=== PATIENT | female | born 1985 ===

== ENCOUNTER 2022-03-12 09:45 | Outpatient (REF) | payer OTHER, SELFPAY ==
[2022-03-13 13:04] LABS: BV Int Neg Control Negative (Negative); BV Int Pos Control Positive (Positive)
[2022-03-17 07:39] LABS: HPV mRNA E6/E7 rflx Not Detected (Not Detected)
== END 2022-03-12 09:46 | disposition home or self-care (01) ==
LOC: HO.LNP 09:45
PROVIDERS: Visit Provider Advanced Practice Midwife
DX: Z01.419 Encounter for gynecological examination (general) (routine) without abnormal findings (principal); Z11.3 Encounter for screening for infections with a predominantly sexual mode of transmission
CPT/HCPCS: 87480; 87510; 87624; 87660; 88142

== ENCOUNTER 2022-03-12 09:54 | Outpatient (REF) | payer OTHER, SELFPAY ==
[2022-03-12 11:37] LABS: HIV AB/AG Nonreactive (Nonreactive); HIV Num 1 0.07 S/CO (0.00-0.99); Hepatitis B Surface Antigen Negative (Negative); ~HepC Num1 0.09 S/CO (0.00-0.79); ~Hepatitis C Antibody Nonreactive (Nonreactive)
[2022-03-12 13:09] LABS: Syphilis Screen Nonreactive (Nonreactive)
[2022-03-12 14:19] LABS: CT PCR NOT DETECTED (Not Detect.); NG PCR NOT DETECTED (Not Detect.)
== END 2022-03-12 09:55 | disposition home or self-care (01) ==
LOC: HO.LAB 09:54
PROVIDERS: PCP Hospitalist; Visit Provider Advanced Practice Midwife
DX: Z11.3 Encounter for screening for infections with a predominantly sexual mode of transmission (principal)
CPT/HCPCS: 86780; 86803; 87340; 87389; 87491; 87591

== ENCOUNTER 2022-12-31 11:13 | Outpatient (AMB) | payer OTHER, SELFPAY ==
[2022-12-31 11:32] VITALS: BP 98/60; PULSE 77; RESP 12; O2SAT 99; BMI 32.6
--- NOTE | 2022-12-31 11:32 | MHC.PC.OV ---
Vital Signs 12/31/22 11:32 Height 5 ft 3 in Weight 184 lb BMI 32.6 BP 98/60 Blood Pressure Location Lt brachial Position Sitting Respiration 12 Pulse 77 Pulse Source Pulse Oximeter Pulse Oximetry (%) 99 Oxygen Delivery Method Room Air Intake Visit Reasons: pt requesting a physical Intake Note: Patient states that she would like a full panel of blood work done due to her daughter having diabetes type 1 and not being here in a couple years. 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 Required: No Accompanied by: Self / Same As Patient Allergies acetaminophen [From PERCOCET] Allergy (Unknown, Verified 12/31/22 11:48) itching oxycodone [From PERCOCET] Allergy (Unknown, Verified 12/31/22 11:48) itching penicillin V Allergy (Unknown, Verified 12/31/22 11:48) rash tramadol [TRAMADOL] Allergy (Unknown, Verified 12/31/22 11:48) PALPITATIONS, dizziness, dizziness pencilliin Allergy (Unknown, Uncoded 03/12/22 09:07) rash Medication List - Last Reconciled 12/31/22 by JAYDEN Andrea No Known Home Meds Tobacco use date assessed: 12/31/22 Dental Screening Dental Screen Date: 12/31/22 Did you have a dental visit in the last 12 months?: Yes Did you have a dental problem in the last 6 months where you did not have access to dental care?: No Was dental information given to patient?: Patient has dentist HPI HPI Comments History of Present Illness Details [age] year old female with no significant medical history. Presents today as physical exam from Cindy Moore last seen 4 years ago.Patient denies CP, palpitations, cob and syncope. Patient reports occasionally her feet swell with increased salt intake. Patient advised to decrease salt consumption. eye exam: recommended Pap smear: March 2022 COUNT INCLUDES THE [facility] Medical History (Updated 12/31/22 @ 11:49 by JAYDEN Andrea) Cervical cancer screening Relies on tubal ligation as primary control method Well woman exam with routine gynecological exam Surgical History Hx of section Family History (Updated 12/31/22 @ 11:50 by JAYDEN Andrea) Maternal Aunt Cancer Daughter Diabetes type I Mother Thyroid disease Diabetes mellitus Hypotension Social History (Updated 12/31/22 @ 11:51 by JAYDEN Andrea) Housing: House Alcohol intake: current Alcohol intake frequency: holidays/special occasions only Patient Tobacco Use Status: Never used Tobacco e-Cigarette/Vaping Use: Never Used service: No Current occupational status: employed 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 Cognitive needs: No Hearing needs: No Vision needs: Yes Female Reproductive History Menstrual Age of Menarche: 14 Review of Systems Const Denies chills, Denies fatigue, Denies fever(s) and Denies poor appetite Eyes Denies no additional complaints ENT Reports Normal hearing present Card Denies chest pain, Denies syncope, Denies rapid heart rate and Denies dyspnea Resp Denies cough and Denies dyspnea GI Denies change in stool character, Denies constipation, Denies diarrhea, Denies nausea and Denies vomiting Denies urinary frequency, Denies dysuria and Denies urinary urgency Neuro Reports Normal hearing present, Denies confusion and Denies syncope Psych Denies confusion Endo Denies fatigue Physical exam (Primary Care) Vital Signs: Last Vital Signs Pulse 77 12/31/22 11:32 Resp 12 12/31/22 11:32 BP 98/60 12/31/22 11:32 Pulse Ox 99 12/31/22 11:32 Oxygen Delivery Method Room Air 12/31/22 11:32 BMI result Body Mass Index 32.6 Tobacco/Smoking Status: Tobacco use Status Tobacco use date assessed 12/31/22 12/31/22 11:41 Patient Tobacco Use Status Never used Tobacco 12/31/22 11:51 e-Cigarette/Vaping Use Never Used 12/31/22 11:51 Const General: cooperative and healthy appearing; No acute distress or confusion Orientation/consciousness: patient oriented x3 and No confusion HENMT Head: Yes normocephalic and Yes atraumatic Ears: external ears normal and TM's normal bilaterally General nose exam: Normal external nose present and Normal nasal mucous membranes and turbinates present Face and sinus: Yes normal facial exam and Yes sinuses nontender Mouth: moist mucous membranes Throat: Yes tonsils normal Eyes Conjunctivae: conjunctivae normal Sclerae: sclerae normal Pupils: Equal, round and reactive pupils present and Pupils normal by confrontation EOM: EOMs intact bilaterally Direct Ophthalmoscopy: normal light reflex Neck Neck: Yes no lymphadenopathy and Yes supple Thyroid: Thyroid normal Chest Chest palpation & inspection: normal inspection of the chest Resp Effort & Inspection: normal respiratory effort Auscultation: clear to auscultation bilaterally, no crackles, no rhonchi and no wheezes Cardio Rate: regular rate Rhythm: regular rhythm Peripheral pulses: radial pulses present and dorsalis pedis present GI Inspection: Yes normal to inspection Palpation (GI): Soft to palpation, nontender and No hepatosplenomegaly present Auscultation: normoactive bowel sounds Skin General skin exam: no rashes or lesions noted Neuro General: patient oriented x3 and No confusion Cranial nerves: Yes CN's II-XII intact bilaterally, Yes Equal, round and reactive pupils present and Yes Normal hearing present Cognition (Neuro): normal cognition Gait exam (Neuro): Normal gait present Motor exam (neuro): 5/5 motor strength present throughout Deep tendon reflexes (DTR's): Right brachioradialis reflex intensity grade: 2+, Left brachioradialis reflex intensity grade: 2+, Right patellar reflex intensity grade: 2+ and Left patellar reflex intensity grade: 2+ Extrem General: No edema Assessment and Plan Assessment & Plan (1) Physical exam, annual: Code(s): Z00.00 - Encounter for general adult medical examination without abnormal findings Plan: Fasting lab work ordered. Follow up in 1 year. Plan follow up in 1 year. Orders: Orders Complete Blood Count Auto Diff Today Z13.0 - Encounter for screening for diseases of the blood and blood-forming organs and certain disorders involving the immune mechanism Lipid Panel Today Z13.220 - Encounter for screening for lipoid disorders TSH reflex Free T4 Today Z13.29 - Encounter for screening for other suspected endocrine disorder Comprehensive [facility]. Panel Fast Today Z13.1 - Encounter for screening for diabetes mellitus Vitamin D 25-OH Total Today Z13.21 - Encounter for screening for nutritional disorder Coding Level of Care Code New Pt Prev Care 18-39yr([id number] Diagnoses Physical exam, annual Z00.00
== END 2022-12-31 11:59 | disposition home or self-care (01) ==
PROVIDERS: PCP Hospitalist; Visit Provider Nurse Practitioner Family
DX: Z00.00 Encounter for general adult medical examination without abnormal findings (principal)
CPT/HCPCS: 99385

== ENCOUNTER 2023-01-01 08:27 | Outpatient (REF) | payer OTHER, SELFPAY ==
[2023-01-01 08:48] LABS: MANUAL DIFF FLAG NO
[2023-01-01 10:29] LABS: Basophils Absolute Auto 0.1 X10*3/uL (0.0-0.2); Basophils Percent Auto 0.9 % (0-2); Eosinophils Absolute Auto 0.3 X10*3/uL (0.0-0.4); Eosinophils Percent Auto 4.1 % (0-4); Hematocrit 32.3 % (37.0-47.0); Hemoglobin 9.3 g/dl (12.0-16.0); Imm Gran Abs Auto 0.01 X10*3/uL (0.00-0.03); Imm Gran Pct Auto 0.2 % (0.0-0.4); Lymphocytes Absolute Auto 2.3 X10*3/uL (1.2-4.9); Lymphocytes Percent Auto 33.9 % (20-40); Mean Corpuscular HGB Conc 28.8 g/dl (31.0-35.0); Mean Corpuscular Hemoglobin 21.6 pg (27.0-33.0); Mean Corpuscular Volume 74.9 fL (80.0-98.0); Mean Platelet Volume 11.9 fL (9.4-12.3); Monocytes Absolute Auto 0.5 X10*3/uL (0.1-1.2); Monocytes Percent Auto 7.1 % (2-11); Neutrophils Absolute Auto 3.6 x10*3/uL (2.0-8.3); Neutrophils Percent Auto 53.8 % (45-73); Platelet Count 370 X10*3/uL (160-400); Red Blood Count 4.31 X10*6/uL (4.20-5.50); Red Cell Distribution Width 16.6 % (11.0-16.0); White Blood Count 6.6 X10*3/uL (4.8-10.8)
[2023-01-01 11:06] LABS: Alanine Aminotransferase 11 U/L (0-31); Albumin Level 3.9 g/dL (3.5-5.0); Alkaline Phosphatase 64 U/L (39-117); Anion Gap 10 (12-20); Aspartate Amino Transferase 17 U/L (5-31); Bilirubin Total 0.3 mg/dL (0.0-1.0); Blood Urea Nitrogen 12 mg/dL (9-16); Calcium 9.2 mg/dL (8.4-10.2); Carbon Dioxide 25 mmol/L (22-29); Chloride 108 mmol/L (96-108); Cholesterol 144 mg/dL (<200); Estimated Glomerular Filt Rate > 60; Glucose Fasting 85 mg/dL (60-99); HDL Cholesterol 50 mg/dL (>40); LDL Cholesterol Calculated 80 mg/dL (<100); Potassium 4.4 mmol/L (3.3-5.1); Sodium 139 mmol/L (135-145); Total Protein 7.4 g/dL (6.5-8.0); Triglycerides 73 mg/dL (<150)
[2023-01-01 11:23] LABS: TSH reflex Free T4 2.13 uIU/mL (0.32-4.0); Vitamin D 25-OH Total 36.7 ng/mL (>30)
== END 2023-01-01 08:28 | disposition home or self-care (01) ==
LOC: HO.LAB 08:27
PROVIDERS: PCP Nurse Practitioner Family; Visit Provider Nurse Practitioner Family
DX: Z13.21 Encounter for screening for nutritional disorder (principal); Z13.0 Encounter for screening for diseases of the blood and blood-forming organs and certain disorders involving the immune mechanism; Z13.29 Encounter for screening for other suspected endocrine disorder; Z13.220 Encounter for screening for lipoid disorders; Z13.1 Encounter for screening for diabetes mellitus
CPT/HCPCS: 36415; 80053; 80061; 82306; 84443; 85025

== ENCOUNTER 2023-01-11 12:32 | Outpatient (REF) | payer OTHER, SELFPAY ==
[2023-01-11 13:02] LABS: MANUAL DIFF FLAG NO
[2023-01-11 13:48] LABS: Basophils Absolute Auto 0.1 X10*3/uL (0.0-0.2); Basophils Percent Auto 1.1 % (0-2); Eosinophils Absolute Auto 0.1 X10*3/uL (0.0-0.4); Eosinophils Percent Auto 1.1 % (0-4); Hematocrit 30.1 % (37.0-47.0); Hemoglobin 8.8 g/dl (12.0-16.0); Imm Gran Abs Auto 0.01 X10*3/uL (0.00-0.03); Imm Gran Pct Auto 0.1 % (0.0-0.4); Lymphocytes Absolute Auto 3.2 X10*3/uL (1.2-4.9); Lymphocytes Percent Auto 38.1 % (20-40); Mean Corpuscular HGB Conc 29.2 g/dl (31.0-35.0); Mean Corpuscular Hemoglobin 22.1 pg (27.0-33.0); Mean Corpuscular Volume 75.4 fL (80.0-98.0); Mean Platelet Volume 11.4 fL (9.4-12.3); Monocytes Absolute Auto 0.7 X10*3/uL (0.1-1.2); Monocytes Percent Auto 8.2 % (2-11); Neutrophils Absolute Auto 4.3 x10*3/uL (2.0-8.3); Neutrophils Percent Auto 51.4 % (45-73); Platelet Count 401 X10*3/uL (160-400); Red Blood Count 3.99 X10*6/uL (4.20-5.50); Red Cell Distribution Width 16.5 % (11.0-16.0); White Blood Count 8.4 X10*3/uL (4.8-10.8)
[2023-01-11 14:17] LABS: Iron 24 mcg/dL (30-160); Percent Iron Saturation 7 % (15-50); Total Iron Binding Capacity 367 mcg/dL (228-428); Unsaturated Iron Binding 343 ug/dL
[2023-01-11 14:37] LABS: Ferritin 3 ng/mL (10-122)
== END 2023-01-11 12:33 | disposition home or self-care (01) ==
LOC: HO.LAB 12:32
PROVIDERS: PCP Nurse Practitioner Family; Visit Provider Nurse Practitioner Family
DX: D50.9 Iron deficiency anemia, unspecified (principal)
CPT/HCPCS: 36415; 82728; 83540; 85025

== ENCOUNTER 2023-01-25 08:49 | Outpatient (REF) | payer OTHER, SELFPAY ==
[2023-01-25 09:20] LABS: MANUAL DIFF FLAG NO
[2023-01-25 10:23] LABS: Basophils Percent Auto 0.6 % (0-2); Eosinophils Absolute Auto 0.2 X10*3/uL (0.0-0.4); Eosinophils Percent Auto 2.1 % (0-4); Hematocrit 36.7 % (37.0-47.0); Imm Gran Abs Auto 0.01 X10*3/uL (0.00-0.03); Imm Gran Pct Auto 0.1 % (0.0-0.4); Lymphocytes Absolute Auto 2.2 X10*3/uL (1.2-4.9); Lymphocytes Percent Auto 30.4 % (20-40); Mean Corpuscular Hemoglobin 24.2 pg (27.0-33.0); Mean Corpuscular Volume 80.8 fL (80.0-98.0); Mean Platelet Volume 11.9 fL (9.4-12.3); Monocytes Absolute Auto 0.5 X10*3/uL (0.1-1.2); Monocytes Percent Auto 7.1 % (2-11); Neutrophils Absolute Auto 4.3 x10*3/uL (2.0-8.3); Neutrophils Percent Auto 59.7 % (45-73); Platelet Count 300 X10*3/uL (160-400); Red Blood Count 4.54 X10*6/uL (4.20-5.50); Red Cell Distribution Width 24.1 % (11.0-16.0); White Blood Count 7.2 X10*3/uL (4.8-10.8)
[2023-01-25 12:37] LABS: Iron 98 mcg/dL (30-160); Percent Iron Saturation 32 % (15-50); Total Iron Binding Capacity 307 mcg/dL (228-428); Unsaturated Iron Binding 209 ug/dL
[2023-01-25 13:00] LABS: Ferritin 39 ng/mL (10-122)
== END 2023-01-25 08:50 | disposition home or self-care (01) ==
LOC: HO.LAB 08:49
PROVIDERS: PCP Nurse Practitioner Family; Visit Provider Nurse Practitioner Family
DX: D50.9 Iron deficiency anemia, unspecified (principal)
CPT/HCPCS: 36415; 82728; 83540; 85025

== ENCOUNTER → 2023-01-28 13:16 | Outpatient (BNV) | payer OTHER, SELFPAY | PROVIDERS: PCP Nurse Practitioner Family; Referring Provider Nurse Practitioner Family; Visit Provider Internal Medicine Medical Oncology | DX: D50.9 Iron deficiency anemia, unspecified (principal) | CPT/HCPCS: 99204; 99213 ==

== ENCOUNTER 2023-03-02 08:59 | Outpatient (REF) | payer OTHER, SELFPAY ==
[2023-03-02 09:29] LABS: MANUAL DIFF FLAG NO
[2023-03-02 09:39] LABS: Basophils Absolute Auto 0.1 X10*3/uL (0.0-0.2); Basophils Percent Auto 0.8 % (0-2); Eosinophils Absolute Auto 0.1 X10*3/uL (0.0-0.4); Eosinophils Percent Auto 1.4 % (0-4); Hematocrit 41.2 % (37.0-47.0); Hemoglobin 13.1 g/dl (12.0-16.0); Imm Gran Abs Auto 0.02 X10*3/uL (0.00-0.03); Imm Gran Pct Auto 0.3 % (0.0-0.4); Lymphocytes Absolute Auto 1.9 X10*3/uL (1.2-4.9); Lymphocytes Percent Auto 29.7 % (20-40); Mean Corpuscular HGB Conc 31.8 g/dl (31.0-35.0); Mean Corpuscular Hemoglobin 28.1 pg (27.0-33.0); Mean Corpuscular Volume 88.2 fL (80.0-98.0); Mean Platelet Volume 11.3 fL (9.4-12.3); Monocytes Absolute Auto 0.4 X10*3/uL (0.1-1.2); Monocytes Percent Auto 6.3 % (2-11); Neutrophils Percent Auto 61.5 % (45-73); Platelet Count 313 X10*3/uL (160-400); Red Blood Count 4.67 X10*6/uL (4.20-5.50); Red Cell Distribution Width 22.9 % (11.0-16.0); White Blood Count 6.5 X10*3/uL (4.8-10.8)
[2023-03-02 09:56] LABS: Alanine Aminotransferase 15 U/L (0-31); Albumin Level 4.2 g/dL (3.5-5.0); Alkaline Phosphatase 72 U/L (39-117); Anion Gap 8 (12-20); Aspartate Amino Transferase 18 U/L (5-31); Bilirubin Total 0.3 mg/dL (0.0-1.0); Blood Urea Nitrogen 8 mg/dL (9-16); Calcium 9.7 mg/dL (8.4-10.2); Carbon Dioxide 28 mmol/L (22-29); Chloride 107 mmol/L (96-108); Estimated Glomerular Filt Rate > 60; Glucose Random 87 mg/dL (60-115); Potassium 4.1 mmol/L (3.3-5.1); Sodium 139 mmol/L (135-145); Total Protein 7.3 g/dL (6.5-8.0)
[2023-03-02 10:10] LABS: Ferritin 24 ng/mL (10-122)
== END 2023-03-02 09:00 | disposition home or self-care (01) ==
LOC: HO.LAB 08:59
PROVIDERS: PCP Nurse Practitioner Family; Visit Provider Internal Medicine Medical Oncology
DX: D50.9 Iron deficiency anemia, unspecified (principal)
CPT/HCPCS: 36415; 80053; 82728; 85025

== ENCOUNTER 2023-04-30 13:25 | Outpatient (REF) | payer OTHER, SELFPAY ==
[2023-05-01 06:07] LABS: CT PCR NOT DETECTED (Not Detect.); NG PCR NOT DETECTED (Not Detect.)
[2023-05-01 12:50] LABS: BV Int Neg Control Negative (Negative); BV Int Pos Control Positive (Positive)
== END 2023-04-30 13:26 | disposition home or self-care (01) ==
LOC: HO.LNP 13:25
PROVIDERS: PCP Nurse Practitioner Family; Visit Provider Advanced Practice Midwife
DX: Z01.419 Encounter for gynecological examination (general) (routine) without abnormal findings (principal); D50.9 Iron deficiency anemia, unspecified; R23.2 Flushing; Z78.9 Other specified health status; Z79.899 Other long term (current) drug therapy
CPT/HCPCS: 0353U; 87480; 87510; 87660; 99395

== ENCOUNTER 2023-04-30 13:25 | Outpatient (AMB) | payer OTHER, SELFPAY ==
[2023-04-30 13:27] VITALS: BP 120/62; BMI 32.8
--- NOTE | 2023-04-30 13:27 | MHC.OFFVIS ---
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 Intake Note: having hot flashes at night states her feet get really warm and doesn't know if she is reaching menopause Robotic Weld Technician Required: Yes Robotic Weld Technician Language: Azeri Information Interpreted: non-clinical & clinical Asbestos Removal Supervisor: Asbestos Removal Supervisor Present (Aidyn) Allergies acetaminophen [From PERCOCET] Allergy (Unknown, Verified 04/30/23 13:30) itching oxycodone [From PERCOCET] Allergy (Unknown, Verified 04/30/23 13:30) itching penicillin V Allergy (Unknown, Verified 04/30/23 13:30) rash tramadol [TRAMADOL] Allergy (Unknown, Verified 04/30/23 13:30) PALPITATIONS, dizziness, dizziness pencilliin Allergy (Unknown, Uncoded 04/30/23 13:30) rash Medication List - Last Reconciled 04/30/23 by Mirian Denny CNM ascorbic acid (vitamin C) 250 mg PO DAILY docusate sodium (Colace) 100 mg PO DAILY ferrous sulfate 325 mg PO TID Is last menstrual period known: Yes Last menstrual period: 04/09/23 Post menopausal: No HPI RECORDER GRAVITY PROSPECTING annual exam HPI Details Patient is here for her ob/gyn nurse exam she has been noticing that her feet get hot at night and then she can it gets all sweaty. She wears thick by her description polyester socks at night. She was wondering if she was having symptoms of menopause. She gets her. Very regularly as she says it has not do heavy. She was dealing with anemia and she was on iron but was taken off the iron because she said was now good she thought the problem was because she used it eat a lot of ice. Discussed causes and symptoms of iron deficiency anemia. Patient is not worried about STDs but would like to get full testing. She said she had a primary care provider but her primary care provider has left so she has not who sure who it is now she will be seeing Dr. Doll in the spring and getting blood work to check on her iron before then I recommend she continue with trying to eat iron rich foods. I will order labs for STD checks for her because she requests these and I will add on a check for TSH just to assess her thyroid function because of her citations of being cold and then hot. She plays volleyball once or twice a week for exercise and loves it she plays at the [employer] on a team. [facility] Medical History (Updated 04/30/23 @ 14:03 by Mirian Denny CNM) Cervical cancer screening Relies on tubal ligation as primary control method Well woman exam with routine gynecological exam Surgical History (Updated 04/30/23 @ 14:00 by ANTONIA Diana) Hx of tubal ligation Hx of section Family History Maternal Aunt Cancer Daughter Diabetes type I Mother Thyroid disease Diabetes mellitus Hypotension Social History Housing: House Alcohol intake: current Alcohol intake frequency: holidays/special occasions only Patient Tobacco Use Status: Never used Tobacco e-Cigarette/Vaping Use: Never Used service: No Current occupational status: employed 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 Cognitive needs: No Hearing needs: No Vision needs: Yes Female Reproductive History Menstrual Age of Menarche: 14 Duration of menses: 3-5 days Date of last menstrual period: 04/09/23 Total pregnancies: 2 Full term: 2 Number of Living Children: 2 Date of last pap smear: 03/12/22 (negative) History of abnormal pap smear: No Physical Exam Vital Signs: Last Vital Signs BP 120/62 04/30/23 13:27 BMI result Body Mass Index 32.8 Results Reviewed Results Reviewed: Name: Margarito Perez Age/Sex: 36/F Attending: Mirian Denny CNM : 1985 Submitted by: Mirian Denny CNM Copies to: MR #: [id number] Status: DEP REF Collected: 03/12/22 Location: [facility] Received: 03/12/22 Interpretation Satisfactory for evaluation. Negative for intraepithelial lesion or malignancy. HPV mRNA E6/E7: NOT DETECTED This assay detects E6/E7 viral messenger RNA (mRNA) from 14 high-risk HPV types (16, 18, 31, 33, 35, 39, 45, 51, 52, 56, 58, 59, 66, 68) HPV testing performed by [facility], [place], [place]. See reference laboratory portion of the EMR for entire report. Clinical Information LMP: 02/22/22 Previous PAP test: 08/26/17, WNL Material Received ThinPrep-Cervical Electronically Signed By: Gilma Escalante 03/30/22 2993 The Pap Test is a screening procedure with the inherent possibility of both false negative and false positive results. Results should be interpreted in the context of historic and current clinical findings. Reliability of the Pap Test is enhanced by performing the test on a regular repetitive basis. Patient: Margarito Perez Age/Sex: 36/F MR#: [id number] Page 1 of 1 Assessment & Plan Assessment & Plan (1) Screen for sexually transmitted diseases: Code(s): Z11.3 - Encounter for screening for infections with a predominantly sexual mode of transmission (2) Relies on tubal ligation as primary control method: Code(s): Z78.9 - Other specified health status (3) Well woman exam with routine gynecological exam: Code(s): Z01.419 - Encounter for gynecological examination (general) (routine) without abnormal findings (4) Cervical cancer screening: Comment: 03/12/2022 Pap is negative with negative HPV Code(s): Z12.4 - Encounter for screening for malignant neoplasm of cervix (5) Iron deficiency anemia: Code(s): D50.9 - Iron deficiency anemia, unspecified (6) Hot flashes: Comment: Start with her feet at night maybe related to the material of her thick polyester socks. Code(s): R23.2 - Flushing Plan Patient is here for her ob/gyn nurse exam she has been noticing that her feet get hot at night and then she can it gets all sweaty. She wears thick by her description polyester socks at night. She was wondering if she was having symptoms of menopause. She gets her. Very regularly as she says it has not do heavy. She was dealing with anemia and she was on iron but was taken off the iron because she said was now good she thought the problem was because she used it eat a lot of ice. Discussed causes and symptoms of iron deficiency anemia. Patient is not worried about STDs but would like to get full testing. She said she had a primary care provider but her primary care provider has left so she has not who sure who it is now she will be seeing Dr. Doll in the spring and getting blood work to check on her iron before then I recommend she continue with trying to eat iron rich foods. I will order labs for STD checks for her because she requests these and I will add on a check for TSH just to assess her thyroid function because of her citations of being cold and then hot. Discussed the symptoms of menopause and perimenopause and while it certainly may be possible that she is having some hot flashes it would be good to explore other potential causes 1st before going straight to that conclusion. Changing the material of her socks to using her more athletic socks at night might be a better solution and might serve her. In the meantime will check the TSH. It is also possible that she is feeling warmer now because her anemia has been corrected. She plays volleyball once or twice a week for exercise and loves it she plays at the [facility] on a team. If everything is okay we will see her in 1 year. She did not think her periods were too heavy Orders: Orders Bacterial Vaginosis Panel Today Z11.3 - Encounter for screening for infections with a predominantly sexual mode of transmission HIV Ab/Ag Today D50.9 - Iron deficiency anemia, unspecified, R23.2 - Flushing, Z11.3 - Encounter for screening for infections with a predominantly sexual mode of transmission, Z12.4 - Encounter for screening for malignant neoplasm of cervix Syphilis Screen Today D50.9 - Iron deficiency anemia, unspecified, R23.2 - Flushing, Z11.3 - Encounter for screening for infections with a predominantly sexual mode of transmission, Z12.4 - Encounter for screening for malignant neoplasm of cervix Thyroid Stimulating Hormone Today D50.9 - Iron deficiency anemia, unspecified, R23.2 - Flushing, Z11.3 - Encounter for screening for infections with a predominantly sexual mode of transmission, Z12.4 - Encounter for screening for malignant neoplasm of cervix CT NG by PCR Today Z11.3 - Encounter for screening for infections with a predominantly sexual mode of transmission Hepatitis B Surface Antigen Today D50.9 - Iron deficiency anemia, unspecified, R23.2 - Flushing, Z11.3 - Encounter for screening for infections with a predominantly sexual mode of transmission, Z12.4 - Encounter for screening for malignant neoplasm of cervix Hepatitis C Antibody Today D50.9 - Iron deficiency anemia, unspecified, R23.2 - Flushing, Z11.3 - Encounter for screening for infections with a predominantly sexual mode of transmission, Z12.4 - Encounter for screening for malignant neoplasm of cervix Coding Level of Care Code Est Pt Prev Care 18-39y(89601) Diagnoses Screen for sexually transmitted diseases Z11.3 Relies on tubal ligation as primary control method Z78.9 Well woman exam with routine gynecological exam Z01.419 Cervical cancer screening Z12.4 Iron deficiency anemia D50.9 Hot flashes R23.2
== END 2023-04-30 14:34 | disposition home or self-care (01) ==
LOC: HO.HWSM 13:25
PROVIDERS: PCP Nurse Practitioner Family; Visit Provider Advanced Practice Midwife
DX: Z01.419 Encounter for gynecological examination (general) (routine) without abnormal findings (principal); Z11.3 Encounter for screening for infections with a predominantly sexual mode of transmission; Z78.9 Other specified health status; Z12.4 Encounter for screening for malignant neoplasm of cervix; D50.9 Iron deficiency anemia, unspecified; R23.2 Flushing
CPT/HCPCS: 99395

== ENCOUNTER 2023-04-30 14:09 | Outpatient (REF) | payer OTHER, SELFPAY ==
[2023-04-30 16:52] LABS: Thyroid Stimulating Hormone 2.31 uIU/mL (0.32-4.0)
[2023-05-01 03:57] LABS: Syphilis Screen Nonreactive (Nonreactive)
[2023-05-01 04:10] LABS: HBsAGNum1 0.34 S/CO (0.00-0.99); HIV AB/AG Nonreactive (Nonreactive); HIV Num 1 0.06 S/CO (0.00-0.99); Hepatitis B Surface Antigen Negative (Negative); ~Hepatitis C Antibody Nonreactive (Nonreactive)
== END 2023-04-30 14:10 | disposition home or self-care (01) ==
LOC: HO.HHCL 14:09
PROVIDERS: Visit Provider Advanced Practice Midwife
DX: R23.2 Flushing (principal); D50.9 Iron deficiency anemia, unspecified; Z11.3 Encounter for screening for infections with a predominantly sexual mode of transmission; Z12.4 Encounter for screening for malignant neoplasm of cervix
CPT/HCPCS: 36415; 84443; 86780; 86803; 87340; 87389

== ENCOUNTER 2023-08-26 12:41 | Outpatient (REF) | payer OTHER, SELFPAY ==
[2023-08-26 12:51] LABS: MANUAL DIFF FLAG NO
[2023-08-26 14:06] LABS: Basophils Absolute Auto 0.1 X10*3/uL (0.0-0.2); Basophils Percent Auto 0.7 % (0-2); Eosinophils Absolute Auto 0.1 X10*3/uL (0.0-0.4); Eosinophils Percent Auto 1.4 % (0-4); Hematocrit 37.5 % (37.0-47.0); Hemoglobin 12.1 g/dl (12.0-16.0); Imm Gran Abs Auto 0.02 X10*3/uL (0.00-0.03); Imm Gran Pct Auto 0.2 % (0.0-0.4); Lymphocytes Absolute Auto 3.4 X10*3/uL (1.2-4.9); Lymphocytes Percent Auto 37.2 % (20-40); Mean Corpuscular HGB Conc 32.3 g/dl (31.0-35.0); Mean Corpuscular Volume 89.9 fL (80.0-98.0); Mean Platelet Volume 11.9 fL (9.4-12.3); Monocytes Absolute Auto 0.7 X10*3/uL (0.1-1.2); Monocytes Percent Auto 7.9 % (2-11); Neutrophils Absolute Auto 4.7 x10*3/uL (2.0-8.3); Neutrophils Percent Auto 52.6 % (45-73); Platelet Count 309 X10*3/uL (160-400); Red Blood Count 4.17 X10*6/uL (4.20-5.50)
[2023-08-26 14:56] LABS: Alanine Aminotransferase 10 U/L (0-31); Albumin Level 3.9 g/dL (3.5-5.0); Alkaline Phosphatase 70 U/L (39-117); Anion Gap 13 (12-20); Aspartate Amino Transferase 15 U/L (5-31); Bilirubin Total 0.2 mg/dL (0.0-1.0); Blood Urea Nitrogen 9 mg/dL (9-16); Calcium 9.4 mg/dL (8.4-10.2); Carbon Dioxide 23 mmol/L (22-29); Chloride 105 mmol/L (96-108); Estimated Glomerular Filt Rate > 60; Glucose Random 79 mg/dL (60-115); Sodium 137 mmol/L (135-145)
[2023-08-26 15:01] LABS: Ferritin 6 ng/mL (10-122)
== END 2023-08-26 12:42 | disposition home or self-care (01) ==
LOC: HO.LAB 12:41
PROVIDERS: Visit Provider Internal Medicine Medical Oncology
DX: D50.9 Iron deficiency anemia, unspecified (principal)
CPT/HCPCS: 36415; 80053; 82728; 85025

== ENCOUNTER 2024-01-05 14:02 | Outpatient (AMB) | payer OTHER, SELFPAY ==
--- NOTE | 2024-01-05 14:19 | A.OFFPC_ITS ---
Vital Signs 01/05/24 14:22 Height 5 ft 3 in Weight 183 lb 6 oz BMI 32.5 BP 126/60 Blood Pressure Location Lt brachial Position Sitting Pulse 82 Pulse Source Pulse Oximeter Pulse Oximetry (%) 98 Oxygen Delivery Method Room Air Intake Visit Reasons: annual exam NEEDS PHQ9 + THRIVE Intake Note: Patient is here today for a physical and KEVEN from [facility] Cocoa Roaster Required: Yes Cocoa Roaster Language: Citizen [place] Information Interpreted: non-clinical & clinical Gas Leak Inspector: Not Required per policy Accompanied by: Self / Same As Patient Allergies acetaminophen [From PERCOCET] Allergy (Unknown, Verified 01/05/24 14:21) itching oxycodone [From PERCOCET] Allergy (Unknown, Verified 01/05/24 14:21) itching penicillin V Allergy (Unknown, Verified 01/05/24 14:21) rash tramadol [TRAMADOL] Allergy (Unknown, Verified 01/05/24 14:21) PALPITATIONS, dizziness, dizziness pencilliin Allergy (Unknown, Uncoded 01/05/24 14:21) rash Tobacco use date assessed: 01/05/24 Dental Screening Dental Screen Date: 01/05/24 Did you have a dental visit in the last 12 months?: Yes Did you have a dental problem in the last 6 months where you did not have access to dental care?: No Was dental information given to patient?: Patient has dentist HPI annual exam NEEDS PHQ9 + THRIVE HPI Details 38-year-old female presents to the offic e requesting an annual physical. Patient speaks Citizen [place] and an ladler was used to via the iPad. In addition, patient is complaining of nosebleeds. She had them as a child and it disappeared. Patient is having symptoms of nosebleeds in the last few months. Intermittent symptoms, usually the right nostril. Associated right ear pain. [facility] Medical History Cervical cancer screening Relies on tubal ligation as primary control method Well woman exam with routine gynecological exam Surgical History Hx of tubal ligation Hx of section Family History Maternal Aunt Cancer Daughter Diabetes type I Mother Thyroid disease Diabetes mellitus Hypotension Social History Housing: House Alcohol intake: current Alcohol intake frequency: holidays/special occasions only Patient Tobacco Use Status: Never used Tobacco e-Cigarette/Vaping Use: Never Used Second Hand Smoke Exposure: No service: No Current occupational status: employed 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 1. Little interest or pleasure in doing things: not at all 2. Feeling down, depressed, or hopeless: not at all 3. Trouble falling or staying asleep, or sleeping too much: several days 4. Feeling tired or having little energy: not at all 5. Poor appetite or overeating: not at all 6. Feeling bad about yourself - or that you are a failure or have let yourself or your family down: not at all 7. Trouble concentrating on things, such as reading the newspaper or watching television: not at all 8. Moving or speaking so slowly that other people could have noticed. Or the opposite - being so fidgety or restless that you have been moving around a lot more than usual: not at all 9. Thoughts that you would be better off or of hurting yourself in some way: not at all Total score: 1 Depression Screening Interpretation: Negative Depression Screening Done: Yes Source: Developed by Drs. Sampson Knight, Zina Price, Jus Jaramillo and colleagues, with an educational michelle from [employer]. Thrive Questionnaire Date Thrive assessed: 01/05/24 I am a: Patient What is your living situation today?: I have a steady place to live Within the past 12 months, did the food you bought not last and you didn't have the money to get more?: Never true Within the past 12 months, did you worry whether your food would run out before you got money to buy more?: Never true Do you have trouble paying for medicines?: No Do you have trouble getting transportation to medical appointments?: No Do you have trouble paying your heating and electricity bill?: I choose not to answer this question Do you have trouble taking care of your child, family member or friend?: No Do you have trouble with day-to-day activities such as bathing, preparing meals, shopping, managing finances, etc.?: No Are you currently unemployed and looking for a job?: No Are you interested in more education?: No Please select the resources that you would like help with: None Currently or been in a relationship where the following occur: No concerns reported THRIVE Score: 0 AUDIT C Alcohol Use Questionnaire (AUDIT-C) 1. How often do you have a drink containing alcohol?: 2-4 times a month 2. How many drinks containing alcohol do you have on a typical day when you are drinking?: 1 or 2 3. How often do you have six or more drinks on one occasion?: Never Total Score: 2 UZMA-7 AMB Questionnaire UZMA-7 Date UZMA - 7 assessed: 01/05/24 Feeling nervous, anxious, or on edge: 1 = Several days Not being able to stop or control worryin = Not at all Worrying too much about different things: 1 = Several days Trouble relaxin = Not at all Being so restless that it is hard to sit still: 1 = Several days Becoming easily annoyed or irritable: 1 = Several days Feeling afraid as if something awful might happen: 0 = Not at all Total UZMA-7 score (0-4 normal; 5-9 mild; 10-14 moderate; 15-21 severe): 4 Source: Developed by Drs. Sampson Knight, Zina Price, Jus Jaramillo and colleagues, with an educational michelle from [employer]. Physical exam (Primary Care) Vital Signs: Last Vital Signs Pulse 82 01/05/24 14:22 BP 126/60 01/05/24 14:22 Pulse Ox 98 01/05/24 14:22 Oxygen Delivery Method Room Air 01/05/24 14:22 Care Plan Goal for BP management: Blood pressure is in range. BMI result Body Mass Index 32.5 BMI Assessment/Plan discussion: High BMI High, discussed plan: lifestyle, weight reduction and dietary Tobacco/Smoking Status: Tobacco use Status Tobacco use date assessed 01/05/24 01/05/24 14:26 Patient Tobacco Use Status Never used Tobacco 09/25/24 14:21 e-Cigarette/Vaping Use Never Used 01/05/24 14:21 PHQ-9: PHQ-9 Score PHQ-9: Total score 1 01/05/24 14:21 Depression Screening Interpretation: Negative Thrive Assessment: Date of Thrive Assessment Date Thrive assessed 01/05/24 01/05/24 14:21 Currently or been in a relationship where the following occur: No concerns reported Const General: cooperative and healthy appearing Nutritional Appearance: well nourished Orientation/consciousness: patient oriented x3 Limitations: no limitations HENMT Head: Yes normal to inspection Eyes General: appearance normal, both eyes and all related structures Neck Neck: Yes normal visual inspection Chest Chest palpation & inspection: normal palpation of entire chest wall Resp Effort & Inspection: normal respiratory effort Neuro General: patient oriented x3 Assessment and Plan Assessment & Plan (1) Physical exam, annual: Code(s): Z00.00 - Encounter for general adult medical examination without abnormal findings Plan: BW has been ordered. Will call with results (2) Epistaxis: Code(s): R04.0 - Epistaxis Plan: Flonase has been ordered. No abnormality on physical exam detected. Trial of flonase and recheck in one month. Medications: Refilled ascorbic acid (vitamin C) 250 mg PO DAILY 30 tabs 3RF D50.9 - Iron deficiency anemia, unspecified Coding Level of Care Code Est Pt Level 3 (73378) Est Pt Prev Care 18-39y(16915) Diagnoses Physical exam, annual Z00.00 Epistaxis R04.0
[2024-01-05 14:22] VITALS: BP 126/60; PULSE 82; O2SAT 98; BMI 32.5
== END 2024-01-05 15:05 | disposition home or self-care (01) ==
PROVIDERS: PCP Internal Medicine; Visit Provider Internal Medicine
DX: Z00.00 Encounter for general adult medical examination without abnormal findings (principal); R04.0 Epistaxis

== ENCOUNTER → 2024-01-05 14:02 | Outpatient (BNVA) | payer OTHER, SELFPAY | PROVIDERS: PCP Internal Medicine; Visit Provider Internal Medicine | DX: Z00.01 Encounter for general adult medical examination with abnormal findings (principal); R04.0 Epistaxis | CPT/HCPCS: 96127; 99212; 99395 ==

== ENCOUNTER 2024-02-03 12:57 | Outpatient (AMB) | payer OTHER, SELFPAY ==
--- NOTE | 2024-02-03 13:01 | A.OFFPC_ITS ---
Vital Signs 02/03/24 13:02 Height 5 ft 3 in Weight 181 lb 8 oz BMI 32.1 BP 100/72 Blood Pressure Location Lt brachial Position Sitting Pulse 84 Pulse Source Pulse Oximeter Pulse Oximetry (%) 98 Oxygen Delivery Method Room Air Intake Visit Reasons: 1mth f/u Intake Note: Patient is here to follow up on Epistaxis 1 month. Pt decline flu shot today. Slabbing Machine Operator Required: No Policy Service Coordinator: Not Required per policy Accompanied by: Self / Same As Patient Allergies acetaminophen [From PERCOCET] Allergy (Unknown, Verified 02/03/24 13:33) itching oxycodone [From PERCOCET] Allergy (Unknown, Verified 02/03/24 13:33) itching penicillin V Allergy (Unknown, Verified 02/03/24 13:33) rash tramadol [TRAMADOL] Allergy (Unknown, Verified 02/03/24 13:33) PALPITATIONS, dizziness, dizziness pencilliin Allergy (Unknown, Uncoded 02/03/24 13:33) rash Medication List - Last Reconciled 02/03/24 by Dawit Olivares MD ascorbic acid (vitamin C) 250 mg PO DAILY docusate sodium (Colace) 100 mg PO DAILY ferrous sulfate 325 mg PO TID fluticasone propionate 50 mcg/actuation (Flonase Allergy Relief) 1 spray intranasal DAILY Tobacco use date assessed: 02/03/24 Dental Screening Dental Screen Date: 01/05/24 HPI 1mth f/u HPI Details 38-year-old female [facility]. She was seen last month for epistaxis and a prescription of Flonase was sent to the pharmacy. Patient picked up the prescription but never used it. She has only had 1 or 2 episodes of epistaxis since then. 2 weeks ago, patient was in a flight and had developed sharp pain in the left ear. No discharge from the ear. No fevers or chills. [facility] Medical History Cervical cancer screening Relies on tubal ligation as primary control method Well woman exam with routine gynecological exam Surgical History Hx of tubal ligation Hx of section Family History Maternal Aunt Cancer Daughter Diabetes type I Mother Thyroid disease Diabetes mellitus Hypotension Social History Housing: House Alcohol intake: current Alcohol intake frequency: holidays/special occasions only Patient Tobacco Use Status: Never used Tobacco e-Cigarette/Vaping Use: Never Used Second Hand Smoke Exposure: No service: No Current occupational status: employed Current occupation: [employer] Cognitive needs: No Hearing needs: No Vision needs: Yes Female Reproductive History Menstrual Age of Menarche: 14 Questionnaire Thrive Questionnaire Date Thrive assessed: 01/05/24 I am a: Patient What is your living situation today?: I have a steady place to live Within the past 12 months, did the food you bought not last and you didn't have the money to get more?: Never true Within the past 12 months, did you worry whether your food would run out before you got money to buy more?: Never true Do you have trouble paying for medicines?: No Do you have trouble getting transportation to medical appointments?: No Do you have trouble paying your heating and electricity bill?: I choose not to answer this question Do you have trouble taking care of your child, family member or friend?: No Do you have trouble with day-to-day activities such as bathing, preparing meals, shopping, managing finances, etc.?: No Are you currently unemployed and looking for a job?: No Are you interested in more education?: No Please select the resources that you would like help with: None Currently or been in a relationship where the following occur: No concerns reported THRIVE Score: 0 UZMA-7 AMB Questionnaire UZMA-7 Date UZMA - 7 assessed: 01/05/24 Source: Developed by Drs. Sampson Knight, Zina Price, Jus Jaramillo and colleagues, with an educational michelle from [employer]. Physical exam (Primary Care) Vital Signs: Last Vital Signs Pulse 84 02/03/24 13:02 BP 100/72 02/03/24 13:02 Pulse Ox 98 02/03/24 13:02 Oxygen Delivery Method Room Air 02/03/24 13:02 BMI result Body Mass Index 32.1 Tobacco/Smoking Status: Tobacco use Status Tobacco use date assessed 02/03/24 02/03/24 13:08 Patient Tobacco Use Status Never used Tobacco 02/03/24 13:08 e-Cigarette/Vaping Use Never Used 02/03/24 13:08 Thrive Assessment: Date of Thrive Assessment Date Thrive assessed 01/05/24 02/03/24 13:08 Currently or been in a relationship where the following occur: No concerns reported Const General: cooperative and healthy appearing Nutritional Appearance: well nourished Orientation/consciousness: patient oriented x3 Limitations: no limitations HENMT Other: Right ear: Ear canal is slightly congested. No mastoid tenderness. Head: Yes normal to inspection Eyes General: appearance normal, both eyes and all related structures Neck Neck: Yes normal visual inspection Chest Chest palpation & inspection: normal palpation of entire chest wall Resp Effort & Inspection: normal respiratory effort Neuro General: patient oriented x3 Coding Level of Care Code Est Pt Level 3 (87533) Complex EM visit Add On G2211 Diagnoses Epistaxis R04.0 Otitis media H66.90 Assessment & Plan Assessment & Plan (1) Epistaxis: Code(s): R04.0 - Epistaxis Plan: Patient was encouraged to use Flonase intermittently. This will help with the ear pain also. (2) Otitis media: Code(s): H66.90 - Otitis media, unspecified, unspecified ear Plan: Azithromycin called in.
[2024-02-03 13:02] VITALS: BP 100/72; PULSE 84; O2SAT 98; BMI 32.1
== END 2024-02-03 13:25 | disposition home or self-care (01) ==
PROVIDERS: PCP Internal Medicine; Visit Provider Internal Medicine
DX: R04.0 Epistaxis (principal); H66.92 Otitis media, unspecified, left ear

== ENCOUNTER → 2024-02-03 12:57 | Outpatient (BNVA) | payer OTHER, SELFPAY | PROVIDERS: PCP Internal Medicine; Visit Provider Internal Medicine | DX: R04.0 Epistaxis (principal); H66.90 Otitis media, unspecified, unspecified ear | CPT/HCPCS: 99212 ==

== ENCOUNTER 2024-02-18 09:33 | Outpatient (REF) | payer OTHER, SELFPAY ==
[2024-02-18 10:49] LABS: Appearance Urine Clear; Color Urine Yellow; Glucose Urine UA Negative (Negative); Leukocyte Esterase Urine Trace (Negative); Nitrite Urine Negative (Negative); PH 7.5 (5.0-9.0); Specific Gravity - Urine <= 1.005 (1.005-1.025); UMIC TRIGGER UA YES; Urine Blood Moderate (2+) (Negative); Urine Ketones Negative (Negative); Urine Protein Negative (Neg-Trace)
[2024-02-18 11:03] LABS: Bacteria Urine 1+ (None Seen); Hyaline Casts Urine 0-2 /LPF (0-2); RBC Urine 0-2 /HPF (0-2); WBC Urine 0-5 /HPF (0-5)
[2024-02-18 12:25] LABS: Alanine Aminotransferase 15 U/L (0-31); Albumin Level 4.1 g/dL (3.5-5.0); Alkaline Phosphatase 79 U/L (39-117); Anion Gap 12 (12-20); Aspartate Amino Transferase 22 U/L (5-31); Bilirubin Direct 0.1 mg/dL (0.0-0.5); Bilirubin Total 0.3 mg/dL (0.0-1.0); Blood Urea Nitrogen 8 mg/dL (9-16); Calcium 9.6 mg/dL (8.4-10.2); Carbon Dioxide 26 mmol/L (22-29); Chloride 106 mmol/L (96-108); Cholesterol 142 mg/dL (<200); Estimated Glomerular Filt Rate > 60; Glucose Random 94 mg/dL (60-115); HDL Cholesterol 53 mg/dL (>40); LDL Cholesterol Calculated 78 mg/dL (<100); Potassium 4.5 mmol/L (3.3-5.1); Sodium 139 mmol/L (135-145); Thyroid Stimulating Hormone 1.99 uIU/mL (0.32-4.0); Total Protein 7.7 g/dL (6.5-8.0); Triglycerides 59 mg/dL (<150)
== END 2024-02-18 09:34 | disposition home or self-care (01) ==
LOC: HO.LAB 09:33
PROVIDERS: PCP Internal Medicine; Visit Provider Internal Medicine
DX: Z00.00 Encounter for general adult medical examination without abnormal findings (principal); R04.0 Epistaxis
CPT/HCPCS: 36415; 80048; 80061; 80076; 81001; 84443

== ENCOUNTER 2024-05-15 15:17 | Outpatient (REF) | payer OTHER, SELFPAY ==
[2024-05-16 01:25] LABS: CT PCR NOT DETECTED (Not Detect.); NG PCR NOT DETECTED (Not Detect.)
[2024-05-16 08:07] LABS: Syphilis Screen Nonreactive (Nonreactive)
[2024-05-16 08:44] LABS: HBsAGNum1 0.36 S/CO (0.00-0.99); HIV AB/AG Nonreactive (Nonreactive); HIV Num 1 0.07 S/CO (0.00-0.99); Hepatitis B Surface Antigen Negative (Negative); ~HepC Num1 0.08 S/CO (0.00-0.79); ~Hepatitis C Antibody Nonreactive (Nonreactive)
[2024-05-17 08:18] LABS: Bacterial Vaginosis PCR POSITIVE (Negative); Candida Group PCR NOT DETECTED (Not Detect); Candida glab krusei PCR NOT DETECTED (Not Detect); Trichomonas vaginalis PCR NOT DETECTED (Not Detect)
== END 2024-05-15 15:18 | disposition home or self-care (01) ==
LOC: HO.LAB 15:17
PROVIDERS: PCP Internal Medicine; Visit Provider Advanced Practice Midwife
DX: Z01.419 Encounter for gynecological examination (general) (routine) without abnormal findings (principal); Z78.9 Other specified health status; Z11.3 Encounter for screening for infections with a predominantly sexual mode of transmission; N89.8 Other specified noninflammatory disorders of vagina
CPT/HCPCS: 81515; 86780; 86803; 87340; 87389; 87491; 87591; 99395; 99459

== ENCOUNTER 2024-05-15 15:48 | Outpatient (REF) | payer OTHER, SELFPAY | END 2024-05-15 15:49 | disposition home or self-care (01) | LOC: HO.HHCL 15:48 | PROVIDERS: Visit Provider Advanced Practice Midwife | DX: Z13.89 Encounter for screening for other disorder (principal) ==

== ENCOUNTER 2024-08-03 13:16 | Outpatient (AMB) | payer OTHER, SELFPAY ==
--- NOTE | 2024-08-03 13:37 | MHC.PC.OV ---
Vital Signs 08/03/24 13:39 Height 5 ft 3 in Weight 183 lb 2 oz BMI 32.4 BP 110/62 Blood Pressure Location Lt brachial Position Sitting Pulse 63 Pulse Source Pulse Oximeter Temp 97.1 F Temp Source Temporal Artery Scan Pulse Oximetry (%) 100 Oxygen Delivery Method Room Air Intake Visit Reasons: 6 month f/u Intake Note: Patient is here to follow up on Anemia. Financial Systems Manager Required: No Bus And Rail Operator: Not Required per policy Accompanied by: Self / Same As Patient Allergies acetaminophen [From PERCOCET] Allergy (Unknown, Verified 08/03/24 13:56) itching oxycodone [From PERCOCET] Allergy (Unknown, Verified 08/03/24 13:56) itching penicillin V Allergy (Unknown, Verified 08/03/24 13:56) rash tramadol [TRAMADOL] Allergy (Unknown, Verified 08/03/24 13:56) PALPITATIONS, dizziness, dizziness pencilliin Allergy (Unknown, Uncoded 08/03/24 13:56) rash Medication List - Last Reconciled 08/03/24 by Dawit Olivares MD No Known Home Meds Tobacco use date assessed: 08/03/24 Dental Screening Dental Screen Date: 08/03/24 Did you have a dental visit in the last 12 months?: Yes Did you have a dental problem in the last 6 months where you did not have access to dental care?: No Was dental information given to patient?: Patient has dentist [facility] Medical History (Updated 08/03/24 @ 13:57 by Dawit Olivares MD) Iron deficiency anemia Cervical cancer screening Relies on tubal ligation as primary control method Well woman exam with routine gynecological exam Surgical History Hx of tubal ligation Hx of section Family History Maternal Aunt Cancer Daughter Diabetes type I Mother Thyroid disease Diabetes mellitus Hypotension Social History Housing: House Alcohol intake: current Alcohol intake frequency: holidays/special occasions only Patient Tobacco Use Status: Never used Tobacco e-Cigarette/Vaping Use: Never Used Second Hand Smoke Exposure: No service: No Current occupational status: employed 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 1. Little interest or pleasure in doing things: not at all 2. Feeling down, depressed, or hopeless: not at all 3. Trouble falling or staying asleep, or sleeping too much: not at all 4. Feeling tired or having little energy: not at all 5. Poor appetite or overeating: not at all 6. Feeling bad about yourself - or that you are a failure or have let yourself or your family down: not at all 7. Trouble concentrating on things, such as reading the newspaper or watching television: not at all 8. Moving or speaking so slowly that other people could have noticed. Or the opposite - being so fidgety or restless that you have been moving around a lot more than usual: not at all 9. Thoughts that you would be better off or of hurting yourself in some way: not at all Total score: 0 Depression Screening Interpretation: Negative Depression Screening Done: Yes Source: Developed by Drs. Sampson Knight, Zina Price, Jus Jaramillo and colleagues, with an educational michelle from [employer]. Thrive Questionnaire Date Thrive assessed: 08/03/24 Currently or been in a relationship where the following occur: No concerns reported THRIVE Score: 0 AUDIT C Alcohol Use Questionnaire (AUDIT-C) 1. How often do you have a drink containing alcohol?: 2-4 times a month 2. How many drinks containing alcohol do you have on a typical day when you are drinking?: 1 or 2 Total Score: 2 UZMA-7 AMB Questionnaire UZMA-7 Date UZMA - 7 assessed: 08/03/24 Feeling nervous, anxious, or on edge: 0 = Not at all Not being able to stop or control worryin = Not at all Worrying too much about different things: 0 = Not at all Trouble relaxin = Not at all Being so restless that it is hard to sit still: 0 = Not at all Becoming easily annoyed or irritable: 0 = Not at all Feeling afraid as if something awful might happen: 0 = Not at all Total UZMA-7 score (0-4 normal; 5-9 mild; 10-14 moderate; 15-21 severe): 0 Source: Developed by Drs. Sampson Knight, Zina Price, Jus Jaramillo and colleagues, with an educational michelle from [employer]. Physical exam (Primary Care) Vital Signs: Last Vital Signs Temp 97.1 F 08/03/24 13:39 Pulse 63 08/03/24 13:39 BP 110/62 08/03/24 13:39 Pulse Ox 100 08/03/24 13:39 Oxygen Delivery Method Room Air 08/03/24 13:39 Care Plan Goal for BP management: BP in range BMI result Body Mass Index 32.4 BMI Assessment/Plan discussion: High BMI High, discussed plan: lifestyle, weight reduction and dietary Tobacco/Smoking Status: Tobacco use Status Tobacco use date assessed 08/03/24 08/03/24 13:44 Patient Tobacco Use Status Never used Tobacco 08/03/24 13:44 e-Cigarette/Vaping Use Never Used 08/03/24 13:44 PHQ-9: PHQ-9 Score PHQ-9: Total score 0 08/03/24 13:44 Depression Screening Interpretation: Negative Thrive Assessment: Date of Thrive Assessment Date Thrive assessed 08/03/24 08/03/24 13:44 Currently or been in a relationship where the following occur: No concerns reported Coding Level of Care Code Est Pt Level 4 (86371) Complex EM visit Add On G2211 Diagnoses Iron deficiency anemia D50.9 Irritation of ear H93.8X9 Assessment & Plan Assessment & Plan (1) Iron deficiency anemia: Code(s): D50.9 - Iron deficiency anemia, unspecified Category: Medical Plan: Blood work has been ordered again. Will call with results (2) Irritation of ear: Code(s): H93.8X9 - Other specified disorders of ear, unspecified ear Plan: She has a complaint in every of her visits regarding the ear, however nothing clinical is noted. Trial of flonase did not help in the past. Will try steroid drops. Plan History of Present Illness The patient is a 39-year-old female presenting with ear pain. She has had this issue for nearly a year, describing the pain as intermittent but bothersome. Despite feeling normal upon inspection, the ear discomfort remains unexplained. The patient also raised concerns regarding her hemoglobin levels, suspecting a decline. 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 Review of Systems - Ear/Nose/Throat: Reports ear pain. - Hematologic: Reports concern over decreased hemoglobin. Physical Exam General: Cooperative and healthy appearing Nutritional Appearance: Well nourished Orientation/consciousness: Patient oriented x3 Limitations: No limitations Head: Normal to inspection General: Appearance normal, both eyes and all related structures Neck: Normal visual inspection Chest: Normal palpation of entire chest wall Respiratory: Normal respiratory effort Neurology: Patient oriented x3 Results Plan I will prescribe ear drops to address the ear pain, choosing this option over nasal sprays due to patient preference. To evaluate and manage her suspected decline in hemoglobin levels, I aim to conduct appropriate blood work. These diagnostic steps will help confirm the presence of anemia and guide subsequent treatment options as needed. Patient was informed and verbally consented to the use of an ambient scribe for clinic note documentation during this visit. Discussion Notes I explained to the patient our approach to address her complaints, starting with ear drops to mitigate the ear pain symptoms. I also informed her of the need for blood tests to evaluate her hemoglobin levels, as the results would guide further treatment if required. The patient understood and agreed with the proposed steps and did not express further concerns at the end of the conversation. Patient Instructions - Use the prescribed ear drops as directed to help with the ear pain. - Undergo the planned blood test to check hemoglobin levels. - Follow up if there are any new symptoms or if current symptoms worsen. Orders: Orders Basic Metabolic Panel Today D50.9 - Iron deficiency anemia, unspecified Lipid Panel Today D50.9 - Iron deficiency anemia, unspecified Liver Panel Today D50.9 - Iron deficiency anemia, unspecified Cyclic Citrullinated Peptide Today D50.9 - Iron deficiency anemia, unspecified Ferritin Today D50.9 - Iron deficiency anemia, unspecified IRON PROFILE Today D50.9 - Iron deficiency anemia, unspecified Thyroid Stimulating Hormone Today D50.9 - Iron deficiency anemia, unspecified UA and rflx microscopic Today D50.9 - Iron deficiency anemia, unspecified Complete Blood Count no Diff Today D50.9 - Iron deficiency anemia, unspecified Reticulocyte Count Today D50.9 - Iron deficiency anemia, unspecified Medications: New [id number] 3.5-10,000-1 mg/mL-unit/mL-% 4 drps otic (ears) Q8H 10 mL 0RF
[2024-08-03 13:39] VITALS: BP 110/62; PULSE 63; TEMP 36.2; O2SAT 100; BMI 32.4
--- OUTSIDE RECORDS SUMMARY | 2024-08-03 15:37 | XMS_ITS | Clinical Summary ---
Author Organization [facility] [employer] [facility] it Address [address] [place] [address] Care Team Providers Care Cannery Worker Name Role Phone Unavailable Primary Care Provider Unavailabl e Social History Tobacco Use Types Packs/Day Years Used Date Smoking Tobacco: Never Assessed Comments Unknown Sex and Gender Information Value Date Recorded Sex Assigned at Not on file Legal Sex Female 12:25 PM EST Gender Identity Not on file Sexual Orientation Not on file Plan of Treatment Health Maintenance Due Date Last Done Comments DTaP,Tdap,and Td Vaccines (1 - Tdap) 2005 Hepatitis B Vaccines (1 of 3 - 19+ 3-dose series) 2005 Cervical Cancer Screening: P ap Smear 06/20/2007 COVID-19 Vaccine ( - 2023-2 5 season) 2023 Influenza Vaccine (Season Ended) 2024 HIB Vaccines Aged Out No longer eligi ble based on patient's age to complete this topic HPV Vaccines Aged Out No longer eligi ble based on patient's age to complete this topic Hepatitis A Vaccines Aged Out No long er eligible based on patient's age to complete this topic IPV Vaccines Aged Out No longer eligi ble based on patient's age to complete this topic MMR Vaccines Aged Out No longer eligi ble based on patient's age to complete this topic Meningococcal ACWY Vaccine Aged Out N o longer eligible based on patient's age to complete this topic Meningococcal B Vaccine Aged Out No l onger eligible based on patient's age to complete this topic Pneumococcal Vaccine: Pediat rics (0 to 5 Years) and At-Risk Patients (6 to 64 Years) Aged Out No longer eligible b ased on patient's age to complete this topic RSV Immunization Patients Un masood 20 months Aged Out No longer eligible b ased on patient's age to complete this topic Varicella Vaccines Aged Out No longer eligible based on patient's age to complete this topic
== END 2024-08-03 13:54 | disposition home or self-care (01) ==
LOC: HO.HMCH 13:17
PROVIDERS: PCP Internal Medicine; Visit Provider Internal Medicine
DX: D50.9 Iron deficiency anemia, unspecified (principal); H93.8X9 Other specified disorders of ear, unspecified ear

== ENCOUNTER → 2024-08-03 13:16 | Outpatient (BNVA) | payer OTHER, SELFPAY | PROVIDERS: PCP Internal Medicine; Visit Provider Internal Medicine | DX: D50.9 Iron deficiency anemia, unspecified (principal); H93.8X9 Other specified disorders of ear, unspecified ear | CPT/HCPCS: 99212 ==

== ENCOUNTER 2024-08-12 07:11 | Outpatient (REF) | payer OTHER, SELFPAY ==
--- OUTSIDE RECORDS SUMMARY | 2024-08-12 07:13 | XMS_ITS | Clinical Summary ---
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
[2024-08-12 08:09] LABS: Appearance Urine Clear; Color Urine Yellow; Glucose Urine UA Negative (Negative); Leukocyte Esterase Urine Trace (Negative); Nitrite Urine Negative (Negative); UMIC TRIGGER UA YES; Urine Blood Small (1+) (Negative); Urine Ketones Negative (Negative); Urine Protein Negative (Neg-Trace)
[2024-08-12 08:24] LABS: Hematocrit 32.3 % (37.0-47.0); Hemoglobin 9.7 g/dl (12.0-16.0); Immature Retic Fraction 11.6 % (3.0-15.9); Mean Corpuscular Hemoglobin 23.9 pg (27.0-33.0); Mean Corpuscular Volume 79.6 fL (80.0-98.0); Mean Platelet Volume 11.5 fL (9.4-12.3); Platelet Count 350 X10*3/uL (160-400); Red Blood Count 4.06 X10*6/uL (4.20-5.50); Red Cell Distribution Width 15.8 % (11.0-16.0); Retic HGB Equivalent 22.7 pg (30.0-35.0); Reticulocyte Percent 1.1 % (0.5-1.8); Reticulocytes Absolute 0.043 X10*6/uL (0.026-0.095); White Blood Count 6.3 X10*3/uL (4.8-10.8)
[2024-08-12 08:29] LABS: Bacteria Urine 1+ (None Seen); Hyaline Casts Urine 0-2 /LPF (0-2); RBC Urine 0-2 /HPF (0-2); WBC Urine 0-5 /HPF (0-5)
[2024-08-12 08:43] LABS: Alanine Aminotransferase 20 U/L (0-31); Alkaline Phosphatase 66 U/L (39-117); Anion Gap 11 (12-20); Aspartate Amino Transferase 24 U/L (5-31); Bilirubin Direct 0.1 mg/dL (0.0-0.5); Bilirubin Total 0.3 mg/dL (0.0-1.0); Blood Urea Nitrogen 12 mg/dL (9-16); Calcium 9.1 mg/dL (8.4-10.2); Carbon Dioxide 25 mmol/L (22-29); Chloride 111 mmol/L (96-108); Cholesterol 144 mg/dL (<200); Estimated Glomerular Filt Rate > 60; Glucose Random 94 mg/dL (60-115); HDL Cholesterol 53 mg/dL (>40); Iron 16 mcg/dL (30-160); LDL Cholesterol Calculated 82 mg/dL (<100); Percent Iron Saturation 5 % (15-50); Potassium 4.6 mmol/L (3.3-5.1); Sodium 142 mmol/L (135-145); Total Iron Binding Capacity 343 mcg/dL (228-428); Total Protein 7.2 g/dL (6.5-8.0); Triglycerides 49 mg/dL (<150); Unsaturated Iron Binding 327 ug/dL
[2024-08-12 09:02] LABS: Ferritin 5 ng/mL (10-122)
[2024-08-15 11:48] LABS: Cyclic Citrullinated Peptide <16 UNITS
== END 2024-08-12 07:12 | disposition home or self-care (01) ==
LOC: HO.LAB 07:11
PROVIDERS: PCP Internal Medicine; Visit Provider Internal Medicine
DX: D50.9 Iron deficiency anemia, unspecified (principal)
CPT/HCPCS: 36415; 80048; 80061; 80076; 81001; 82728; 83540; 84443; 85027; 85045; 86200

== ENCOUNTER 2024-11-24 12:55 | Outpatient (AMB) | payer OTHER, SELFPAY ==
--- OUTSIDE RECORDS SUMMARY | 2024-11-24 12:57 | XMS_ITS | Clinical Summary ---
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
--- NOTE | 2024-11-24 13:12 | AM.OFFWIN_ITS ---
Intake Vital Signs 11/24/24 13:13 Height 5 ft 3 in Weight 175 lb 8 oz BMI 31.1 BP 100/56 L Blood Pressure Location Rt brachial Position Sitting Pulse 65 Pulse Source Pulse Oximeter Temp 98.1 F Temp Source Oral Pulse Oximetry (%) 98 Oxygen Delivery Method Room Air Intake Visit Reasons: EP eye heaviness, ear fluid? Patient Tobacco Use Status: Never used Tobacco Usability Architect Required: No Is last menstrual period known: Yes Last menstrual period: 11/15/24 Post menopausal: No Patient : No Allergies acetaminophen (From PERCOCET) Allergy (Unknown, Verified 11/24/24 13:17) itching oxycodone (From PERCOCET) Allergy (Unknown, Verified 11/24/24 13:17) itching penicillin V Allergy (Unknown, Verified 11/24/24 13:17) rash tramadol (TRAMADOL) Allergy (Unknown, Verified 11/24/24 13:17) PALPITATIONS, dizziness, dizziness pencilliin Allergy (Unknown, Uncoded 08/03/24 13:56) rash Do you need a note to return to daycare/school/sports/work: No HPI HPI Comments History of Present Illness Details This is a 39 year old female with no stated past medical history presenting for evaluation of watery itchy eyes, runny nose and a heaviness in her eyes bilaterally that has been ongoing since August. She denies having any fev ers, chills, visual changes, ear pain, cough or shortness of breath. Patient states that she was previously prescribed Flonase that was not helpful for her symptoms. [facility] Medical History (Updated 11/24/24 @ 13:56 by Kirstin Leos PA-C) Iron deficiency anemia Cervical cancer screening Relies on tubal ligation as primary control method Well woman exam with routine gynecological exam Surgical History Hx of tubal ligation Hx of section Family History Maternal Aunt Cancer Daughter Diabetes type I Mother Thyroid disease Diabetes mellitus Hypotension Social History Housing: House Alcohol intake: current Alcohol intake frequency: holidays/special occasions only Patient Tobacco Use Status: Never used Tobacco e-Cigarette/Vaping Use: Never Used Second Hand Smoke Exposure: No Patient : No service: No Current occupational status: employed 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 Cognitive needs: No Hearing needs: No Vision needs: Yes Female Reproductive History Menstrual Age of Menarche: 14 Date of last menstrual period: 11/15/24 Review of Systems Const All systems reviewed & are unremarkable except as noted in HPI and below Denies chills, Denies difficulty sleeping, Denies fatigue, Denies fever(s), Denies headache(s) and Denies lethargy Eyes Reports no additional complaints, Denies blurry vision, Denies change in vision and Reports itchy eyes ENT Denies otalgia, Denies facial pain, Denies headache(s), Denies lip swelling, Reports nasal discharge, Denies nose pain, Denies post nasal drip, Denies sinus pain and Denies tongue swelling Card Denies chest pain and Denies dyspnea Resp Denies cough, Denies dyspnea and Denies wheezing GI Reports no additional complaints Musc Reports no additional complaints Skin/Breast Reports system reviewed and no additional complaints, except as documented Neuro Reports no additional complaints and Denies headache(s) Psych Reports no additional complaints Endo Denies fatigue Aller/Immun Reports itchy eyes, Denies lip swelling, Reports seasonal rhinorrhea, Denies tongue swelling and Denies wheezing Physical Exam Vital Signs: Last Vital Signs Temp 98.1 F 11/24/24 13:13 Pulse 65 11/24/24 13:13 BP 100/56 L 11/24/24 13:13 Pulse Ox 98 11/24/24 13:13 Oxygen Delivery Method Room Air 11/24/24 13:13 BMI result Body Mass Index 31.1 Const General: cooperative, healthy appearing, comfortable, no acute distress, well de veloped, alert, awake and Physically active; No diaphoretic Nutritional Appearance: well nourished Orientation/consciousness: patient oriented x3 Limitations: language barrier (Utilized viscose cellar charge hand via video) HEENT Head: Yes normal to inspection and Yes normocephalic Ears: hearing grossly normal bilaterally, external ears normal, right TM abnormal (TM perforation, no erythema, no discharge), left TM abnormal (Fluid level noted behind left TM) and EAC's normal General nose exam: Normal external nose present Face and sinus: Yes normal facial exam and Yes sinuses nontender Mouth: Normal oral and palatal mucosa present and moist mucous membranes Throat: Yes posterior oropharynx normal and No postnasal drainage Eyes General: appearance normal, both eyes and all related structures Visual [place]: normal visual [place] by confrontation Alignment and Position: alignment normal Periorbital: periorbital findings normal Eyelids: Yes eyelids normal Conjunctivae: conjunctivae normal Sclerae: sclerae normal Corneas: corneas normal Pupils: Equal, round and reactive pupils present EOM: EOMs intact bilaterally Direct Ophthalmoscopy: normal light reflex and no photophobia Neck Lymphatic: no lymphadenopathy noted Skin General skin exam: no rashes or lesions noted Neuro General: patient oriented x3 Cranial nerves: Yes Equal, round and reactive pupils present Psych Appearance: grossly normal Mental Status: mental status grossly normal Insight: Good insight present (Psych) Judgement: Good judgement present (Psych) Assessment & Plan Assessment & Plan (1) Allergic rhinitis: Comment: Patient is well-appearing and in no acute distress. Patient will be discharged home with loratadine to take once daily. Code(s): J30.9 - Allergic rhinitis, unspecified Qualifiers: Allergic rhinitis trigger: unspecified Allergic rhinitis seasonality: seasonal Qualified Code(s): J30.2 - Other seasonal allergic rhinitis Plan: Loratadine once daily; follow up with PCP as needed. 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 Patient has seen ENT as an outpatient. Code(s): H72.90 - Unspecified perforation of tympanic membrane, unspecified ear Qualifiers: Laterality: right Qualified Code(s): H72.91 - Unspecified perforation of tympanic membrane, right ear Plan: Follow up with ENT only as needed. Medications: New loratadine (Allergy Relief (loratadine)) 10 mg PO DAILY 30 caps 1RF Coding Level of Care Code Est Pt Level 3 (16395) Diagnoses Seasonal allergic rhinitis, unspecified trigger J30.2 Allergic rhinitis trigger: unspecified Allergic rhinitis seasonality: seasonal Perforation of right tympanic membrane H72.91 Laterality: right Time Spent (min) 20
[2024-11-24 13:13] VITALS: BP 100/56; PULSE 65; TEMP 36.7; O2SAT 98; BMI 31.1
== END 2024-11-24 13:50 | disposition home or self-care (01) ==
PROVIDERS: PCP Internal Medicine; Visit Provider Physician Assistant
DX: J30.2 Other seasonal allergic rhinitis (principal); H72.91 Unspecified perforation of tympanic membrane, right ear

== ENCOUNTER → 2024-11-24 12:55 | Outpatient (BNVA) | payer OTHER, SELFPAY | PROVIDERS: PCP Internal Medicine; Visit Provider Physician Assistant | DX: H72.91 Unspecified perforation of tympanic membrane, right ear (principal); J30.2 Other seasonal allergic rhinitis | CPT/HCPCS: 99212 ==

== ENCOUNTER 2025-03-29 14:20 | Outpatient (AMB) | payer OTHER, SELFPAY ==
--- NOTE | 2025-03-29 14:27 | MHC.PC.OV ---
Vital Signs 03/29/25 14:28 Height 5 ft 3 in Weight 172 lb 4 oz BMI 30.5 BP 100/58 L Blood Pressure Location Lt brachial Position Sitting Pulse 76 Pulse Source Pulse Oximeter Temp 97.5 F Temp Source Temporal Artery Scan Pulse Oximetry (%) 98 Oxygen Delivery Method Room Air Intake Visit Reasons: PE Intake Note: Patient is here today for a physical. Set And Exhibit Designer Required: No Regulatory Affairs Coordinator: Not Required per policy Accompanied by: Self / Same As Patient Allergies acetaminophen (From PERCOCET) Allergy (Unknown, Verified 03/29/25 14:28) itching oxycodone (From PERCOCET) Allergy (Unknown, Verified 03/29/25 14:28) itching penicillin V Allergy (Unknown, Verified 03/29/25 14:28) rash tramadol (TRAMADOL) Allergy (Unknown, Verified 03/29/25 14:28) PALPITATIONS, dizziness, dizziness pencilliin Allergy (Unknown, Uncoded 03/29/25 14:28) rash Medication List - Last Reconciled 03/29/25 by Dawit Olivares MD ascorbate calcium (vitamin C) 500 mg PO DAILY ferrous sulfate (Feosol) 325 mg PO DAILY loratadine (Allergy Relief (loratadine)) 10 mg PO DAILY metronidazole 1% (Metrogel) 1 appl topical BID jqighvuy-olrbrggzw-WR 3.5-10,000-1 mg/mL-unit/mL-% 4 drps otic (ears) Q8H Tobacco use date assessed: 03/29/25 Dental Screening Dental Screen Date: 08/03/24 HPI HPI Comments History of Present Illness Details History of Present Illness - The patient is a 39-year-old female presenting for an annual physical examination with concerns about a persistent ear problem and facial rash. - She reports an ongoing ear issue, which she believes is due to severe allergies, and mentions it is slightly better. - She also describes a facial rash with redness that is more prominent in the morning, along with itchy eyes and nose. - Previous use of loratadine and ear drops for these symptoms was not effective. - The patient found some relief after switching to a fragrance-free face cream. - She has a history of anemia and was followed by a visually impaired teacher, but she was discharged from their care last year after her condition improved. - The patient also reports a 15-pound weight loss, which she attributes to her new physically demanding job. 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 - Exercise: She attributes a 15-pound weight loss to her physically active job. Results - Hematology Consult (historical): The patient reports she was discharged from hematology care last year for anemia as her condition had improved. [facility] Medical History (Updated 03/29/25 @ 14:54 by Dawit Olivares MD) Rosacea Iron deficiency anemia Cervical cancer screening Relies on tubal ligation as primary control method Well woman exam with routine gynecological exam Surgical History Hx of tubal ligation Hx of section Family History Maternal Aunt Cancer Daughter Diabetes type I Mother Thyroid disease Diabetes mellitus Hypotension Social History Housing: House Alcohol intake: current Alcohol intake frequency: holidays/special occasions only Patient Tobacco Use Status: Never used Tobacco e-Cigarette/Vaping Use: Never Used Second Hand Smoke Exposure: No service: No Current occupational status: employed Current occupation: [employer] Cognitive needs: No Hearing needs: No Vision needs: Yes Female Reproductive History Menstrual Age of Menarche: 14 Questionnaire PHQ-9 Over the last 2 weeks, how often have you been bothered by any of the following problems? 1. Little interest or pleasure in doing things: not at all 2. Feeling down, depressed, or hopeless: not at all 3. Trouble falling or staying asleep, or sleeping too much: not at all 4. Feeling tired or having little energy: not at all 5. Poor appetite or overeating: several days 6. Feeling bad about yourself - or that you are a failure or have let yourself or your family down: not at all 7. Trouble concentrating on things, such as reading the newspaper or watching television: not at all 8. Moving or speaking so slowly that other people could have noticed. Or the opposite - being so fidgety or restless that you have been moving around a lot more than usual: not at all 9. Thoughts that you would be better off or of hurting yourself in some way: not at all Total score: 1 Depression Screening Interpretation: Positive Depression Screening Done: Yes Source: Developed by Drs. Sampson Knight, Zina Price, Jus Jaramillo and colleagues, with an educational michelle from [employer]. Thrive Questionnaire Date Thrive assessed: 08/03/24 I am a: Patient What is your living situation today?: I have a steady place to live Within the past 12 months, did the food you bought not last and you didn't have the money to get more?: Often true Within the past 12 months, did you worry whether your food would run out before you got money to buy more?: Often true Do you have trouble paying for medicines?: No Do you have trouble getting transportation to medical appointments?: No Do you have trouble paying your heating and electricity bill?: Yes Do you have trouble taking care of your child, family member or friend?: No Do you have trouble with day-to-day activities such as bathing, preparing meals, shopping, managing finances, etc.?: No Are you currently unemployed and looking for a job?: No Are you interested in more education?: No Please select the resources that you would like help with: None Currently or been in a relationship where the following occur: No concerns reported THRIVE Score: 3 AUDIT C Alcohol Use Questionnaire (AUDIT-C) 1. How often do you have a drink containing alcohol?: 2-4 times a month 2. How many drinks containing alcohol do you have on a typical day when you are drinking?: 1 or 2 3. How often do you have six or more drinks on one occasion?: Never Total Score: 2 UZMA-7 AMB Questionnaire UZMA-7 Date UZMA - 7 assessed: 08/03/24 Feeling nervous, anxious, or on edge: 0 = Not at all Not being able to stop or control worryin = Not at all Worrying too much about different things: 0 = Not at all Trouble relaxin = Not at all Being so restless that it is hard to sit still: 0 = Not at all Becoming easily annoyed or irritable: 0 = Not at all Feeling afraid as if something awful might happen: 0 = Not at all Total UZMA-7 score (0-4 normal; 5-9 mild; 10-14 moderate; 15-21 severe): 0 Source: Developed by Drs. Sampson Knight, Zina Price, Jus Jaramillo and colleagues, with an educational michelle from [employer]. Review of Systems Narrative Review of Systems - General: Reports a 15-pound weight loss. - Eyes: Reports ocular pruritus. - Ears: Reports a persistent ear problem that has slightly improved. - Nose: Reports a rash on her nose. - Skin: Reports facial erythema and pruritus, worse in the mornings. Physical exam (Primary Care) Vital Signs: Last Vital Signs Temp 97.5 F 03/29/25 14:28 Pulse 76 03/29/25 14:28 BP 100/58 L 03/29/25 14:28 Pulse Ox 98 03/29/25 14:28 Oxygen Delivery Method Room Air 03/29/25 14:28 BMI result Body Mass Index 30.5 Tobacco/Smoking Status: Tobacco use Status Tobacco use date assessed 03/29/25 03/29/25 14:32 Patient Tobacco Use Status Never used Tobacco 03/29/25 14:32 e-Cigarette/Vaping Use Never Used 03/29/25 14:32 PHQ-9: PHQ-9 Score PHQ-9: Total score 1 03/29/25 14:32 Depression Screening Interpretation: Positive Thrive Assessment: Date of Thrive Assessment Date Thrive assessed 08/03/24 03/29/25 14:32 Currently or been in a relationship where the following occur: No concerns reported Narrative Physical Exam General: Appearance normal, both eyes and all related structures Nutritional Appearance: Well nourished, 15 pounds weight loss Orientation/consciousness: Patient oriented x3 Limitations: No limitations Head: Normal to inspection Neck: Normal visual inspection Chest: Normal palpation of entire chest wall Respiratory: Normal respiratory effort Neurology: Patient oriented x3 Coding Level of Care Code Est Pt Level 3 (31832) Est Pt Prev Care 18-39y(97937) Diagnoses Rosacea L71.9 Annual physical exam Z00.00 Assessment & Plan Assessment & Plan (1) Rosacea: Code(s): L71.9 - Rosacea, unspecified Category: Medical Plan: Metrogel cream prescribed twice a day (2) Annual physical exam: Code(s): Z00.00 - Encounter for general adult medical examination without abnormal findings Plan Plan - Rosacea: A prescription for Metrogel was provided. - Rosacea: The patient was instructed to wash and dry her face, then apply the cream to the nose and both sides of the face twice daily for one month. - Rosacea: The patient was advised to follow up if the condition does not improve. - Health Maintenance: The patient will proceed for routine blood work today. - Follow-up: The patient was advised to return in one year for her next annual visit. Discussion Notes I discussed the diagnosis of rosacea with the patient and provided a prescription for Metrogel. I educated her on the application of the cream, instructing her to apply it twice daily for one month to the affected facial areas, and to notify me if there is no improvement. I also ordered routine blood work, which she agreed to have done today. A follow-up appointment was recommended in one year. Patient Instructions - A prescription for Metrogel cream has been sent to your pharmacy for your facial rash (rosacea). - Wash and dry your face, then apply the cream to the red areas on your cheeks and nose twice a day (morning and evening) for one month. - If your rash does not get better, please contact the office. - Please go to the lab to have your blood work drawn today. - Please schedule a follow-up appointment in one year. Orders: Orders Complete Blood Count no Diff Today L71.9 - Rosacea, unspecified Basic Metabolic Panel Today L71.9 - Rosacea, unspecified Lipid Panel Today L71.9 - Rosacea, unspecified Liver Panel Today L71.9 - Rosacea, unspecified Thyroid Stimulating Hormone Today L71.9 - Rosacea, unspecified UA and rflx microscopic Today L71.9 - Rosacea, unspecified Medications: New metronidazole 1% (Metrogel) 1 appl topical BID 60 grams 1RF
[2025-03-29 14:28] VITALS: BP 100/58; PULSE 76; TEMP 36.4; O2SAT 98; BMI 30.5
--- OUTSIDE RECORDS SUMMARY | 2025-03-29 18:31 | XMS_ITS | Clinical Summary ---
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
--- OUTSIDE RECORDS SUMMARY | 2025-03-29 18:31 | XMS_ITS | Data Portability ---
Author Organization [place] - [facility], Allergy Address [address] [place] [address] Assessment Encounter Date Assessment Date Assessment LastModified by Organization Details LastModified Time 11/24/2024 11/24/2024 39-year-old female who presents today as a follow-up from urgent care diagnosis of suppurative right otitis media. On examination she does not have a perforation but does have a monomeric membrane.With serous effusion. Her left ear does have scant serous effusion that is resolving. - Encouraged her to continue her txjf-jqy-zxpcce r allergy medication and fluticasone for 6 weeks - I ordered a prednisone taper to try to improve her symptoms. - Recommend a hearing test at the next visit if still symptomatic - If not improved could consider allergy workup versus tympanostomy tubes. [email or web address] Not available 11/24/2024 14:53:23 Plan of Treatment Reminders Order Date Submit Date Provider Last Modified By Organization Details Last Modified Time Details Appointments None record ed. Lab None record ed. Referral None record ed. Procedures None record ed. Surgeries None record ed. Imaging None record ed. Medication Orders None record ed. Patient TargetsNo targets recorded. Patient InstructionsNo instructions recorded. Reason for Referral None Reported. Problems Name Problem SNOMED Code Status Onset Date Resolution Date Notes Provider Name and Address Organization Details Recorded Time Dysfunction of eustachian tube 66814829 Active 2023 BLAKE MCELROY MD [address] [address], [place], [address] [place] - [facility] 06:45:57 Otitis media of bilateral ears 2774587678937 103 Active 2024 Darius Leyva DO [address], [place], [address], [facility] [place] 5 14:53:45 Dysfunction of bilateral eustachian tubes 4154442164157 100 Active 2024 Darius Leyva, DO [address] [facility],[address], [place], [address], [facility] - [facility] [place] 5 14:54:03 Chronic sinusitis 58458833 Active 2024 Darius Leyva, DO [address] [facility],[address], [place], [address], [facility] - [facility] [place] 5 14:54:54 Sudden sensorineur al hearing loss 787654561 Active 2024 Darius Leyva, DO [address] [facility],[address], [place], [address], [facility] - [facility] 5 14:54:54 Nasal congestion 47547359 Active 2024 Darius Delacruzren, DO [address] [facility],[address], [place], [address], [facility] - [facility] 5 14:54:54 Polyp of nasal cavity and/or nasal sinus 444105968 Active 2024 Darius Leyva, DO [address] [facility] [address], [place], [address], [facility] - [facility] [place] 5 14:54:54 Problem Notes None recorded. Medical Equipment None Reported. Allergies Allergen ID Allergen Name Allergen Category Reaction Reaction Severity Criticality Documentation Date Start Date Code Code System Note Provider Name and Address Organization Details Recorded Time 225047 tramadol medicatio n Not available Not available Not available 10/29/2023 78076 RxNorm Tressa nevarez [place] - [facility] 4 09:37:46 496486 acetamino phen / oxycodone medicatio n Not available Not available Not available 10/29/2023 75785 3 RxNorm Tressa nevarez [place] - [facility] 09:37:54 Medications Name Sig Start Date Stop Date Status Note LastModified by Organization Details LastModified Time neomycin-po lymyxin-hyd rocort 3.5 mg/mL-10,00 0 unit/mL-1 % ear solution INSTILL 4 DROPS IN THE AFFECTED EAR EVERY 8 HOURS active Not Available Not Available No t Available prednisone 10 mg tablet TAKE 4 TABS POR V A ORAL FOR 3 DAYS, 3 TABS FOR 3 DAYS, 2 TABS FOR 3 DAYS, 1 TAB FOR 3 DAYS active Not Available Not Available No t Available azithromyci n 250 mg tablet TOME 2 TABLETAS V A ORAL HOY, [place] TOME 1 TABLETA DIARIAMEN TE VIKI 4 D SEG N LAS INDICACIO RAMÍREZ active Not Available Not Available No t Available ofloxacin 0.3 % ear drops INSTILL 10 DROPS IN RIGHT EAR 2 TIMES A DAY X14 DAYS active Not Available Not Available No t Available ascorbic acid (vitamin C) 500 mg tablet TOME 1 TABLETA POR V A ORAL TODOS LOS D active Not Available Not Available No t Available ascorbic acid (vitamin C) 250 mg tablet TOME CLEMENTINE TABLETA POR V A ORAL A DIARIO active Not Available Not Available No t Available ferrous sulfate 325 mg (65 mg iron) tablet TOME 1 TABLETA POR V A ORAL TODOS LOS D active Not Available Not Available No t Available docusate sodium 100 mg capsule TOME 1 C PSULA POR V A ORAL A DIARIO 10/28 completed Not Available Not Available Not Available fluticasone propionate 50 mcg/actuati on nasal spray,suspe nsion SQUIRT 2 SPRAYS INTO EACH NOSTRIL- USE TWICE DAILY FOR FIVE DAYS THEN DAILY AFTERWARD S active Not Available Not Available No t Available Allergy Relief-D (cetirizine ) 5 mg-120 mg tablet,exte nded release TAKE TWICE DAILY FOR 5 DAYS, THEN TAKE 1 TABLET DAILY AFTER active Not Available Not Available No t Available Vitals Date Recorded Body height Body mass index (BMI) Body weight Provider Name and Address Organization Details Last Updated DateTime 10/29/2023 160.02 cm 32.7 kg/m2 12892.79 g Tressa May [place] - [facility] 10/29/2023 09:37:16 Date Recorded Body height Body mass index (BMI) Body weight Provider Name and Address Organization Details Last Updated DateTime 11/24/2024 160.02 cm 32.6 kg/m2 63502 g Mychal Bustamante [place] - [facility] 11/24/2024 14:30:20 Social History None recorded. Functional Status None recorded. Mental Status None recorded. Family History Nothing Reported. Medical History Condition Response Anemia Y Gynecological HistoryNo gynecological history recorded. Obstetrics History GPAL:G 0 P 0 0 0 0 Past Encounters Encounter ID Performer Location Encounter Start Date Encounter Closed Date Diagnosis/Indication Diagnosis SNOMED-CT Code Diagnosis ICD10 Code Diagnosis IMO Codes Diagnosis Note [id number] BLAKE MCELROY MD [facility] [address] [address] 10/29/2023 09:23:31 10/29/2023 16:50:03 Dysfunction of eustachian tube 58427979 H69.91 38-year-ol d female presents today for evaluation of her ear after being diagnosed with a perforatio n about a week ago. She was put on some eardrops and is feeling improved.O n exam it appears that the perforatio n has healed. There is dimeric membrane anteriorly . There is no effusion or evidence of infection. There is normal tuning fork exam.Reass urance given she may follow-up as needed. [id number] Darius Leyva DO [facility] [address] [address] 11/24/2024 14:22:39 11/24/2024 14:54:49 Otitis media of bilateral ears 9229670803 797457 H66.93 [id number] Dysfunctio n of bilateral eustachian tubes 1116583339 485930 H69.93 [id number] Health Concerns Section Related Observation LastModified by Organization Detai ls LastModified Time None Recorded Concern Status LastModified by Organization Details LastModified Time None Recorded Advance Directives Directive None Recorded Payers Insurance Date Sequence Insurance Name Policy Number Policy Leigh Covered Member ID Leigh Member ID Guarantor Name 01/16/2025 1 [place] [facility] Margarito Perez [id number] Margarito Perez 01/16/2025 1 [employer] [employer] - HEALTH NET PLAN (MEDICAID HMO) STEPHON Perez [id number] Margarito Fitzpatrickgos Notes Date Note Type Note Provider Name and Address Organization Details Recorded Time 10/29/2023 text/html ROS as noted in the HPI 38-year-old female presents today for evaluation of her ear after an ear infection. She was seen in the emergency department on October 22. She was noted to have a right-sided TM perforation. She has been placed on eardrops and feels improved. She has no concerns with her hearing. She does not have a history of frequent ear infections. BLAKE MCELROY MD [address] [facility],[address], [address], [facility] 11/01/2023 06:47:03 11/24/2024 text/html ROS as noted in the HPI Interval Hx: UC visit today - for right ear pain. No dizzy or buzzing. Notes some hearing loss. She feels it is worse on the right greater than left. She also endorses a runny nose bilaterally. She was given an vccj-tfz-ejjpfbp allergy med and some nasal spray. she has not taken this yet.No other concerns at this time. Previously (Dr. Peacock - 10/2023) 38-year-old female presents today for evaluation of her ear after an ear infection. She was seen in the emergency department on October 22. She was noted to have a right-sided TM perforation. She has been placed on eardrops and feels improved. She has no concerns with her hearing. She does not have a history of frequent ear infections. Darius Leyva, [address] [facility],[address], [address], [facility] 11/24/2024 14:54:27 OBGyn Episode No OBEpisode recorded.
== END 2025-03-29 15:00 | disposition home or self-care (01) ==
LOC: HO.HMCH 14:20
PROVIDERS: PCP Internal Medicine; Visit Provider Internal Medicine
DX: Z00.00 Encounter for general adult medical examination without abnormal findings (principal); L71.9 Rosacea, unspecified

== ENCOUNTER 2025-03-29 14:20 | Outpatient (REF) | payer OTHER, SELFPAY ==
[2025-03-29 15:28] LABS: Hematocrit 40.2 % (37.0-47.0); Hemoglobin 13.2 g/dl (12.0-16.0); Mean Corpuscular HGB Conc 32.8 g/dl (31.0-35.0); Mean Corpuscular Hemoglobin 30.8 pg (27.0-33.0); Mean Corpuscular Volume 93.7 fL (80.0-98.0); NRBC Abs Auto 0.000 X10*3/uL (0.0-0.012); NRBC Pct Auto 0.0 /100WBC (0.0-0.2); Platelet Count 301 X10*3/uL (160-400); Red Blood Count 4.29 X10*6/uL (4.20-5.50); White Blood Count 9.1 X10*3/uL (4.8-10.8)
[2025-03-29 16:01] LABS: Appearance Urine Clear; Glucose Urine UA Negative (Negative); PH 5.0 (5.0-9.0); Specific Gravity - Urine 1.020 (1.005-1.025); UMIC TRIGGER UA YES
[2025-03-29 16:17] LABS: Alanine Aminotransferase 21 U/L (0-31); Albumin Level 4.4 g/dL (3.5-5.0); Alkaline Phosphatase 70 U/L (39-117); Anion Gap 8 (12-20); Aspartate Amino Transferase 23 U/L (5-31); Blood Urea Nitrogen 10 mg/dL (9-16); Calcium 9.2 mg/dL (8.4-10.2); Carbon Dioxide 28 mmol/L (22-29); Chloride 108 mmol/L (96-108); Cholesterol 151 mg/dL (<200); Estimated Glomerular Filt Rate > 60; HDL Cholesterol 50 mg/dL (>40); Potassium 3.9 mmol/L (3.3-5.1); Sodium 140 mmol/L (135-145); Total Protein 7.2 g/dL (6.5-8.0); Triglycerides 90 mg/dL (<150)
[2025-03-29 16:23] LABS: Thyroid Stimulating Hormone 1.53 uIU/mL (0.32-4.0)
== END 2025-03-29 14:21 | disposition home or self-care (01) ==
LOC: HO.LAB 14:20
PROVIDERS: PCP Internal Medicine; Visit Provider Internal Medicine
DX: Z00.00 Encounter for general adult medical examination without abnormal findings (principal); L71.9 Rosacea, unspecified
CPT/HCPCS: 36415; 80048; 80061; 80076; 81001; 81003; 84443; 85027; 99212; 99395